=== PATIENT | female | born 1945 | race Caucasian/White ===

== ENCOUNTER 2016-07-11 17:41 | Emergency (ER) | payer MEDICARE ==
[2016-07-11] MEDS ORDERED: MORPHINE 4 MG/ML SYR ONE (19:06)
[2016-07-11] MEDS ORDERED: ONDANSETRON ODT 4 MG TAB ONE (19:06)
== END 2016-07-11 21:17 | disposition home or self-care (01) ==
LOC: ER 17:41
DX: M25.462 Effusion, left knee (principal); S00.83XA Contusion of other part of head, initial encounter; S00.33XA Contusion of nose, initial encounter; S80.02XA Contusion of left knee, initial encounter; S02.2XXA Fracture of nasal bones, initial encounter for closed fracture; W01.0XXA Fall on same level from slipping, tripping and stumbling without subsequent striking against object, initial encounter; Y92.511 Restaurant or cafe as the place of occurrence of the external cause; S83.422A Sprain of lateral collateral ligament of left knee, initial encounter; E11.9 Type 2 diabetes mellitus without complications
CPT/HCPCS: 70450; 70486; 72125; 82947